=== PATIENT | male | born 1990 | race Caucasian/White ===

== ENCOUNTER → 2022-05-31 15:36 | Outpatient (CLI) | payer SELFPAY ==
--- NOTE | ~2022-05-31 | XR_ITS ---
EXAMINATION: XR chest 2V Exam Date/Time: 05/31/2022 16:04 CHEF FRENCH HISTORY: Cough x 1 mo, hx of asthma,HTN, non smoker Comparison: 04/07/2018. RESULT: Lines, tubes, and devices: None. Lungs and pleura: Clear. Cardiomediastinal silhouette: Stable. Other: No acute osseous or upper abdominal finding. IMPRESSION: No acute cardiopulmonary process. Reviewed, dictated and finalized at location K. FRENCH
== END ==
PROVIDERS: PCP Family Medicine; Visit Provider Family Medicine
DX: R05.9 Cough, unspecified (principal)
CPT/HCPCS: 71046

== ENCOUNTER → 2022-06-29 09:38 | Outpatient (CLI) | payer BC, SELFPAY ==
--- NOTE | ~2022-06-29 | CT_ITS ---
EXAMINATION: CT IAC/mastoids BI wo con DATE: 06/29/2022 10:00 INDICATION: Other specified disorders of eustachian tube, left ear. TECHNIQUE: Computed tomography (CT) of the temporal bones was performed without intravenous contrast. The dose-length product was 248.13 mGy-cm. COMPARISON: None FINDINGS: Visualized portion of the brain is unremarkable with normal sized visualized portion of the ventricle s. Orbits are normal. Visualized portion of the paranasal sinuses are clear. Visualized facial soft t issues are unremarkable. No abnormal mass identified along the course of eustachian tubes or in the f ossae of Rosenmuller. RIGHT TEMPORAL BONE: External ear and external auditory canal are normal. The tympanic membrane is unable to be clearly vi sualized. Mastoids are well aerated with no effusion. The middle ear cavities are clear with no abnor mal fluid or soft tissue densities including at the Prussak's space. The scutum is intact. The ossicu lar chain is unremarkable. The cochlea, semicircular canals, oval window, vestibular and cochlear aqu educts are normal. No abnormalities identified along the course of the facial nerve. The internal aud itory canal is normal. The prepontine cisterns are patent with no abnormal masses along the cerebropo ntine angles. The jugular bulb and carotid canal are unremarkable. LEFT TEMPORAL BONE: External ear and external auditory canal are normal. The tympanic membrane is unable to be clearly vi sualized. Mastoids are well aerated with no effusion. The middle ear cavities are clear with no abnor mal fluid or soft tissue densities including at the Prussak's space. The scutum is intact. The ossicu lar chain is unremarkable. The cochlea, semicircular canals, oval window, vestibular and cochlear aqu educts are normal. No abnormalities identified along the course of the facial nerve. The internal aud itory canal is normal. The prepontine cisterns are patent with no abnormal masses along the cerebropo ntine angles. The jugular bulb and carotid canal are unremarkable. IMPRESSION: 1. Normal bilateral IAC/temporal bone CT. Reviewed, dictated and finalized at location A. ORIZATION REPRESENTATIVE
== END ==
PROVIDERS: PCP Family Medicine; Visit Provider Otolaryngology
DX: H69.82 Other specified disorders of Eustachian tube, left ear (principal)
CPT/HCPCS: 70480

== ENCOUNTER 2023-01-11 09:18 | Outpatient (CLI) | payer BC, SELFPAY ==
--- NOTE | ~2023-01-11 | XR_ITS ---
EXAMINATION: XR abdomen/kub 1V INDICATION: Left lower quadrant pain TECHNIQUE: Supine views of the abdomen were obtained on 2 radiographs. COMPARISON: None FINDINGS: A moderate volume of colonic stool is present. The bowel gas pattern is normal. A phlebolit h is noted in the right pelvis. IMPRESSION: 1. No radiographic correlate for the patient's symptoms. Reviewed, dictated and finalized at location L.
[2023-01-11 10:22] LABS: Hematocrit 38.5 % (42.0-52.0); Hemoglobin 13.1 g/dL (14.0-18.0); Mean Corpuscular Hemoglobin 30.6 pg (26-34); Mean Platelet Volume 10.1 fl (7.4-10.4); Platelet Count Result 293 k/mm3 (150-375); Red Blood Count 4.28 M/mm3 (4.6-6.20); Red Cell Distribution Width 11.8 % (11.5-14.5); White Blood Count 5.4 K/mm3 (4.5-10.0)
[2023-01-11 10:36] LABS: Alanine Aminotransferase 26 U/L (6-50); Albumin Level 4.4 g/dL (3.5-5.1); Alkaline Phosphatase 76 U/L (38-126); Anion Gap 7 mmol/L (8-16); Aspartate Amino Transferase 24 U/L (17-59); Bilirubin,Total 0.3 mg/dL (0.2-1.3); Blood Urea Nitrogen 11 mg/dL (9-20); Calcium 9.3 mg/dL (8.4-10.2); Carbon Dioxide 30 mmol/L (22-30); Chloride 104 mmol/L (98-107); Estimated Glomerular Filt Rate > 60; Glucose 106 mg/dL (65-110); Potassium 4.2 mmol/L (3.4-5.0); Sodium 141 mmol/L (137-145)
[2023-01-11 10:53] LABS: Erythrocyte Sedimentation Rate 13 mm/hr (0-20)
[2023-01-11 11:15] LABS: Thyroid Stimulating Hormone Reflex 0.995 uIU/mL (0.465-4.68)
== END 2023-01-11 09:19 | disposition home or self-care (01) ==
PROVIDERS: PCP Family Medicine; Visit Provider Nurse Practitioner
DX: K21.9 Gastro-esophageal reflux disease without esophagitis (principal); R10.32 Left lower quadrant pain; R14.0 Abdominal distension (gaseous); R19.4 Change in bowel habit; R68.81 Early satiety
CPT/HCPCS: 36415; 74018; 80053; 84443; 85027; 85652; 86140

== ENCOUNTER 2023-01-26 01:30 | Day surgery (SDC) | payer BC, SELFPAY ==
[2023-01-15 09:17] VITALS: BMI 34.4
[2023-01-26 11:39] VITALS: BP 139/79; PULSE 89; RESP 18; TEMP 36.6; O2SAT 97
[2023-01-26] MEDS: LACTATED RINGERS 1,000 ML 150 ML IV CONT (11:55)
--- NOTE | 2023-01-26 12:00 | P.PNAN_ITS ---
Anes - Initial Pre Proc Eval Procedure: Operation Date: 01/26/23 12:30 Proposed Procedures p Esophagogastroduodenoscopy & Colonoscopy - Oliverio Kaufman MD Date/Time: 01/26/23 12:00 Surgeon: Oliverio Kaufman MD Pre Op Diagnosis: GERD,Early satiety,LLQ pain,Abd.distension,CIBH Patient Data Age: 32 Gender: M Height: 1.91 m Weight: 125 kg Last Vital Signs Temp 97.9 F 01/26/23 11:39 Pulse 89 01/26/23 11:39 Resp 18 01/26/23 11:39 BP 139/79 01/26/23 11:39 Pulse Ox 97 01/26/23 11:39 O2 Del Method Room Air 01/26/23 11:39 Allergies Allergy/AdvReac Type Severity Reaction Status Date / Time tree nut Allergy Hives Verified 01/26/23 11:38 Home Medications Medication Instructions Recorded Confirmed Type flecainide 100 mg tablet 100 mg PO Q12H #60 tabs 04/14/21 01/15/23 Rx albuterol sulfate 90 mcg/actuation 1 - 2 puff inhalation Q4H PRN 05/15/22 01/15/23 Rx aerosol inhaler (ProAir HFA) shortness of breath or wheezing #8.5 grams omeprazole 40 mg capsule,delayed 40 mg PO DAILY #90 caps 05/29/22 01/15/23 Rx release fluticasone propionate 110 1 puff inhalation Q12H #12 grams 06/16/22 01/15/23 Rx mcg/actuation HFA aerosol inhaler (Flovent HFA) lisinopril 40 mg tablet 40 mg PO DAILY #90 tabs 12/25/22 01/15/23 Rx metoprolol succinate 25 mg See Rx Instructions .Route 01/22/23 Rx tablet,extended release 24 hr .COMPLEX #90 tabs Patient hx anesthesia problems: none Family hx anesthesia problems: none Results Review: All pre-operative results and documents have been reviewed as part of the pre- operative evaluation. [facility], [facility] Past Medical History Medical History (Updated 01/11/23 @ 10:52 by Vane Rogers, JESSIKA) Anxiety Bloating Change in bowel habits Cough Cough Early satiety GERD (gastroesophageal reflux disease) Left arm numbness LLQ pain Normocytic anemia Obesity (BMI 30-39.9) Wellness examination Social History Social History Smoking status: Never smoker Second hand tobacco smoke exposure: No Alcohol intake: current Substance use: never Substance use type: does not use Living arrangements: with family Occupation/Education: occupation Gender identity (if verbalized by the patient): Male Sexual Orientation (if Verbalized by the Patient): Straight or Heterosexual Spiritual care concerns: No Anes - Eval Final PreProcedure Day of Procedure 01/26/23 12:00 Patient weight: obese Heart: regular rate and rhythm Lungs: clear to auscultation Airway: Mallampati scale class II Neurological: alert and oriented Last oral intake: >/= 8 hours ASA classification: II Emergent: no Anesthetic plan: proceed Anesthesia type and monitoring: general GIVS and standard monitoring Results Review: All pre-operative results and documents have been reviewed as part of the pre- operative evaluation. Informed Consent: The patient's anesthetic plan and its attendant risks and benefits were discussed with the patient/family/POA. Questions were solicited and answers pro vided to the satisfaction of the patient/family/POA.
--- NOTE | 2023-01-26 12:18 | WPDHPUPDATE1 ---
History and Physical Update Update Date/Time: 01/26/23 12:18 History and Physical has been reviewed, including an updated exam of the patient. There are NO changes in the patient's condition. Risks, benefits, and alternatives have been discussed and questions answered. Patient agrees to proceed with procedure.
--- NOTE | 2023-01-26 12:33 | SUR.OPER ---
egd ended at 1227 and colonoscopy began at 1232
[2023-01-26 12:43] VITALS: BP 94/51; PULSE 74; RESP 22; O2SAT 97
[2023-01-26 12:53] VITALS: BP 102/59; PULSE 67; RESP 20; O2SAT 97
[2023-01-26 13:03] VITALS: BP 107/66; PULSE 66; RESP 20; O2SAT 97
== END 2023-01-26 13:13 | disposition home or self-care (01) ==
PROVIDERS: PCP Family Medicine; Visit Provider Internal Medicine Gastroenterology
PROC: 0DJ08ZZ Inspection of Upper Intestinal Tract, Via Natural or Artificial Opening Endoscopic (ICD-10-PCS; CPT 43235; principal; 2023-01-26 12:30)
DX: R10.12 Left upper quadrant pain (principal); R19.4 Change in bowel habit; K21.9 Gastro-esophageal reflux disease without esophagitis; Z79.51 Long term (current) use of inhaled steroids; E66.9 Obesity, unspecified; Z68.34 Body mass index [BMI] 34.0-34.9, adult
CPT/HCPCS: 45378; 43239; 88305; J2704; J7120

== ENCOUNTER 2023-08-14 09:09 | Outpatient (CLI) | payer OTHER, SELFPAY ==
--- NOTE | 2023-08-20 16:17 | WPDHOMESLEEP ---
Sleep Study - Home Unattended Date of Study: 08/14/23 Ordering Provider: Jose Antonio Andres DO Interpreting Provider: Esther Barragan DO Home Sleep Study Type: Watch PAT Height: 1.91 m Weight: 127.006 kg Body Mass Index: 34.9 Neck Circumference (inches): 16.75 Higgins: 0 Reason for Sleep Study Difficulty falling and staying asleep Sleep History The patient is a 32-year-old male with hypertension, anxiety, asthma, of ventricular ectopics and obesity that had a sleep study ordered by his workforce specialist for evaluation of sleep apnea. Sleep is the patient denies having trouble sleeping when he has a cold. He denies waking up gasping for air throughout the night. He denies having breathing problems at night observed by himself or others. He occasionally sweats excessively at night. He occasionally has heart palpitations or irregular heartbeats during the night. He denies falling asleep during the day and while driving. He denies cataplexy. He denies having trouble at school or work due to sleepiness. He rarely feels unable to move from waking up or falling asleep. He frequently experiences vivid dreamlike scenes upon awakening or falling asleep. He denies feeling afraid of going to sleep. He denies having nightmares. He rarely remembers his dreams. He constantly has thoughts racing through his mind. He constantly feels sad, depressed and anxious. He rarely has muscular tension. He occasionally notices parts of his body jerk. He denies kicking during the night. Denies having crawling and aching feelings in his legs and denies having leg pain during the night. He denies is awakening with morning jaw pain. He goes to bed between midnight to 1:00 a.m. on both weekdays and weekends. It takes a minimum of 1 hour to fall asleep. He wakes up once throughout the night for unknown reason but is able to fall back asleep within 5 minutes. He wakes up at 8:30 a.m. on weekdays and between 9-10 a.m. on the weekends. He typically gets 6-8 hours of sleep per night. He will stay in bed for over an hour after waking up in the morning. He currently lives with his . PMF Past Medical History Medical History Anxiety Bloating Change in bowel habits Constipation Cough Cough Early satiety GERD (gastroesophageal reflux disease) Left arm numbness LLQ pain Normocytic anemia Obesity (BMI 30-39.9) Wellness examination Social History Social History Smoking status: Never smoker Second hand tobacco smoke exposure: No Alcohol intake: current Substance use: never Substance use type: does not use Do You Feel Safe in your Home?: Yes Lack of Transportation: No Lack of Food: Never True Current Housing: I Have Housing Concerned About Future Housing: No Difficulty Paying Gas/Electric Bills: No Difficulty Paying for Meds: No Currently Unemployed: No Education: Associate Degree Difficulty w/ Childcare or Family Care: No Living arrangements: with family Occupation/Education: occupation Gender identity (if verbalized by the patient): Male Sexual Orientation (if Verbalized by the Patient): Straight or Heterosexual Spiritual care concerns: No Medications Home Medications Medication Instructions Recorded Confirmed Type lisinopril 40 mg tablet 40 mg PO DAILY #90 tabs 12/25/22 08/10/23 Rx metoprolol succinate 25 mg See Rx Instructions .Route 01/22/23 08/10/23 Rx tablet,extended release 24 hr .COMPLEX #90 tabs albuterol sulfate 90 mcg/actuation 1 - 2 puff inhalation Q4H PRN 07/06/23 08/10/23 Rx aerosol inhaler (ProAir HFA) shortness of breath or wheezing #8.5 grams fluticasone propionate 110 1 puff inhalation Q12H #12 grams 07/06/23 08/10/23 Rx mcg/actuation HFA aerosol inhaler aspirin 325 mg tablet 325 mg PO DAILY 08/07/23 08/10/23 History flecainide 150 mg tablet 150 mg PO Q12H #
[2023-08-20 16:21] VITALS: BMI 34.9
== END 2023-08-15 09:57 | disposition home or self-care (01) ==
LOC: ANHCSM 09:09
PROVIDERS: PCP Family Medicine; Visit Provider Internal Medicine Cardiovascular Disease
DX: G47.9 Sleep disorder, unspecified (principal); G47.10 Hypersomnia, unspecified
CPT/HCPCS: 95800

== ENCOUNTER 2024-05-15 14:51 | Outpatient (CLI) | payer OTHER, SELFPAY ==
--- NOTE | ~2024-05-15 | XR_ITS ---
EXAMINATION: XR chest 2V 05/15/2024 15:05 INDICATION: Shortness of breath PROCEDURE: 2 view chest COMPARISON: Comparison to multiple prior studies sequentially, with oldest reviewed study dated 02/05. FINDINGS: The lungs are clear. The cardiomediastinal silhouette is within normal limits. There are no pleural effusions. There is no pneumothorax suspected. IMPRESSION: 1: NO ACUTE CARDIOPULMONARY DISEASE. Reviewed, dictated and finalized at location B. L TILE LATHER
== END 2024-05-15 14:52 | disposition home or self-care (01) ==
LOC: MICIMG 14:54
PROVIDERS: PCP Family Medicine; Visit Provider Physician Assistant Medical
DX: R06.02 Shortness of breath (principal); R05.9 Cough, unspecified
CPT/HCPCS: 71046